=== PATIENT | male | born 2000 | race Caucasian/White ===

== ENCOUNTER 2020-06-06 09:09 | Outpatient (CLI) | payer MEDICAID | END 2020-06-06 09:10 | disposition critical access hospital (66) | LOC: EMS 09:09 | DX: R51.9 Headache, unspecified (principal); M54.2 Cervicalgia; R45.851 Suicidal ideations | CPT/HCPCS: A0425; A0429; A0999 ==

== ENCOUNTER 2020-06-06 09:54 | Emergency (ER) | payer OTHER, MEDICAID ==
--- NOTE | 2020-06-06 10:10 | ED Physician Documentation ---
History of Present Illness - Stated complaint Stated Complaint: GLF - History obtained from History obtained from: Patient, Police - Additonal information Additional information: Pt brought to the ED by police after purposely striking his head against the pavement while being arrested. Pt did not lose consciousness. He resisted arrest, kicked an officer, and as such, some degree of force was required to restrain him, but he denies complaints related to that. He is mainly stating he does not want to go to [facility] again. No visual change. No weakness or nausea. Review of Systems Ten Systems: 10 systems reviewed and negative Constitutional: reports: Reviewed and negative Eyes: reports: Reviewed and negative Ears: reports: Reviewed and negative Nose: reports: Reviewed and negative Throat: reports: Reviewed and negative Cardiac: reports: Reviewed and negative Respiratory: reports: Reviewed and negative GI: reports: Reviewed and negative : reports: Reviewed and negative Skin: reports: Reviewed and negative Musculoskeletal: reports: Reviewed and negative Neurologic: reports: Head injury. denies: LOC Psychiatric: reports: Reviewed and negative Endocrine: reports: Reviewed and negative Immunocompromised: reports: Reviewed and negative PD PAST MEDICAL HISTORY - Allergies Allergies/Adverse Reactions: Allergies Allergy/AdvReac Type Severity Reaction Status Date / Time fentanyl Allergy Unknown Verified 06/06/20 10:06 PD ED PE NORMAL - Vitals Vital signs reviewed: Yes - General General: Alert and oriented X 3, Other (Pt is crying, but mostly cooperative.) - HEENT HEENT: PERRL, EOMI, Moist mucous membranes, Other (3 cm abrasion with minimal STS at superiormost aspect of occipital scalp. 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 I did not feel emergent imaging was indicated at this time. I have d/w pt and police that if further concerns arise, pt may be brought back to the ED. He is clear to book. Departure - Departure Disposition: 01 Home, Self Care Clinical Impression: Closed head injury Qualifiers: Encounter type: initial encounter Qualified Code(s): S09.90XA - Unspecified injury of head, initial encounter Condition: Stable Instructions: ED Head Injury Closed Comments: You have mild evidence of trauma to your scalp externally. Given that you did not lose consciousness, it is unlikely that you have hit your self head hard enough to cause bleeding in the brain. You may have given yourself little bit of a concussion, which can cause some headache, dizziness, and sometimes nausea for several days to week. If you feel like your symptoms are getting worse, you may return to the emergency department for further evaluation, but at this point in time, there is no evidence of a significant injury to your brain. Medically clear for booking. Discharge Date/Time: 06/06/20 10:18
[2020-06-06 10:11] VITALS: BP 136/90
== END 2020-06-06 10:18 | disposition home or self-care (01) ==
LOC: ED 09:54
DX: S09.90XA Unspecified injury of head, initial encounter (principal); S00.01XA Abrasion of scalp, initial encounter; Y35.893A Legal intervention involving other specified means, suspect injured, initial encounter
CPT/HCPCS: 99282; 99283